=== PATIENT | female | born 1995 | race Caucasian/White ===

== ENCOUNTER 2022-04-11 06:06 | Emergency (ER) | payer SELFPAY ==
[2022-04-11 06:28] VITALS: BP 122/72; PULSE 63; RESP 18; TEMP 36.8; O2SAT 99; BMI 29.2
--- NOTE | 2022-04-11 06:36 | HMH.EDGENADL ---
Discharge Plan Disposition Patient Disposition: Home, Self-Care Condition: Good Chief Complaint: Abdominal Pain Prescriptions Prescriptions: No Action No Known Home Medications Activity Restrictions/Add. Instructions Additional Instructions/Restrictions: Follow-up PCP for further work-up. Return to ER for fever, worsening pain. Clinical Impressions Clinical Impression: Abdominal pain Instructions Patient Instructions: DI for Acute Abdominal Pain Discharge ED Provider: Sudheer Gilbert Adult HPI General Chief complaint: Abdominal Pain Stated complaint: Pain in upper stomach Time Seen by Provider: 04/11/22 06:23 Mode of Arrival: Ambulatory Source of Information: Patient Limitations: No Limitations Description of Symptoms (Recalled from ER Triage Doc. by RN): pt c/o central abdominal pain for the prior 3 days that is constant, but more severe when she stands up completely straight. Patient states that she has been having intermittent abdominal pain for the prior 3 years but they have not been able to determine the cause, but does state that she was dx with gallstones. History of Present Illness HPI narrative: 27yo F presents to the emergency department secondary to epigastric and right upper quadrant abdominal pain. Reports the symptoms have been intermittent for 3 years but have been worse for the past 3 days and she can no longer take the pain. States she was evaluated at [facility] and told there were spots on her gallbladder. She is uncertain exactly what this means. This evaluation took place over a year ago. She complains of nausea with vomiting currently. No fever. No sick contact. Related Data Home Medications Medication Instructions Recorded Confirmed No Known Home Medications 04/11/22 04/11/22 Allergies Allergy/AdvReac Type Severity Reaction Status Date / Time latex AdvReac Mild Rash Verified 04/11/22 06:[address] [facility] Social History Smoking Status: Current every day smoker alcohol intake: never current occupational status: unemployed Travel in the last 8 weeks: None ROS Obtained: Yes Systems reviewed as appropriate & no additional complaints except as documented 10 point ROS negative except as above Physical Exam General General appearance: alert and in no apparent distress Head Head exam: atraumatic and normocephalic Neck Neck exam: Present normal inspection and trachea midline; Absent tenderness Chest Chest inspection: Present normal inspection and symmetric chest wall rise Respiratory Respiratory exam: Present normal lung sounds bilaterally Cardiovascular Cardiovascular exam: Present regular rate and normal rhythm Abdominal Exam Abdominal exam: Present soft and normal bowel sounds; Absent distention, tenderness, guarding, rebound, rigidity or mass Comment: No palpable defect to abdominal wall Extremities Exam Extremities exam: Present normal inspection and normal capillary refill; Absent edema Neurological Exam Neurological exam: Present alert, oriented X3 and CN II-XII intact Psychiatric Psychiatric exam: Present normal affect and normal mood Skin Skin exam: Present warm and dry Medical Decision Making Yaniv Inquiry Pt receiving controlled substance: No Vital Signs: 04/11/22 06:28 Temperature 98.3 F Temperature Source Oral Pulse Rate [Apical] 63 Respiratory Rate 18 Blood Pressure [Right Arm] 122/72 Blood Pressure Mean [Right Arm] 88 Blood Pressure Source [Right Arm] Automatic Cuff Blood Pressure Position [Right Arm] Sitting 02 Sat by Pulse Oximetry 99 Oxygen Delivery Method Room Air Lab Data Lab Results 04/11/22 06:25: WBC 9.1, RBC 4.70, Hgb 13.9, Hct 44.6, MCV 95.0, MCH 29.6, MCHC 31.2 L, RDW 13.3, Plt Count 324, MPV 8.0, Neut % (Auto) 68.5, Lymph % (Auto) 21.9, [place] % (Auto) 6.1, Eos % (Auto) 2.6, Baso % (Auto) 1.0, Neut # (Auto) 6.2, Lymph # (Auto) 2.0, [place] # (Auto) 0.6,
[2022-04-11 06:43] LABS: Basophils # 0.1 K/mm3 (0-0.2); Eosinophils # 0.2 K/mm3 (0.0-0.4); Eosinophils % 2.6 % (0.1-12.0); Hematocrit 44.6 % (37.0-47.0); Hemoglobin 13.9 g/dL (12.2-16.2); Lymphocytes % 21.9 % (10-50); Mean Corpuscular HGB Conc 31.2 g/dL (31.8-35.4); Mean Corpuscular Hemoglobin 29.6 pg (27.0-31.2); Monocytes # 0.6 K/mm3 (0.1-1.0); Monocytes % 6.1 % (1.7-9.3); Neutrophils # 6.2 K/mm3 (1.8-7.8); Neutrophils % 68.5 % (37.0-80.0); Platelet Count 324 K/mm3 (142-424); Red Cell Distribution Width 13.3 % (11.5-17.5); White Blood Count 9.1 K/mm3 (4.8-10.8)
[2022-04-11 06:47] LABS: Alanine Aminotransferase 12 U/L (12-78); Albumin Level 4.4 g/dl (3.5-5.0); Albumin/Globulin Ratio 1.6 (1.1-1.8); Alkaline Phosphatase 110 U/L (38-126); Anion Gap 14.7 mEq/L (5-15); Aspartate Amino Transferase 23 U/L (14-36); Bilirubin,Total 0.3 mg/dl (0.2-1.3); Blood Urea Nitrogen 7 mg/dl (7-17); Calcium 8.9 mg/dl (8.4-10.2); Carbon Dioxide 26 mmol/L (22.0-30.0); Chloride 103 mmol/L (98-107); Creatinine Clearance Estimated 194 mL/min (50-200); Estimated Glomerular Filt Rate 148 ml/min (>60); GFR (African American) 179 ML/MIN (>60); Globulin 2.8 g/dL (1.3-3.2); Glucose 99 mg/dl (74-100); Lipase 20 U/L (23-300); Potassium 3.7 mmoL/L (3.5-5.1); Sodium 140 mmol/L (136-145); Total Protein,Serum 7.2 g/dl (6.3-8.2)
[2022-04-11 07:02] VITALS: BP 120/68; PULSE 65; RESP 18; TEMP 36.6; O2SAT 99
== END 2022-04-11 07:11 | disposition home or self-care (01) ==
PROVIDERS: Emergency Provider Family Medicine
DX: R10.9 Unspecified abdominal pain (principal); Z87.19 Personal history of other diseases of the digestive system; Z91.040 Latex allergy status
CPT/HCPCS: 80053; 83690; 85025; 96374; 96375; 99284; J2405

== ENCOUNTER 2023-02-19 23:37 | Emergency (ER) | payer SELFPAY ==
[2023-02-19 23:38] VITALS: BP 121/75; PULSE 74; RESP 16; TEMP 36.6; O2SAT 100; BMI 27.4
--- NOTE | 2023-02-19 23:46 | ECG_ITS ---
APPROVED REPORT Exam: Resting ECG HR:68 bpm ECG Measurements Heart Rate 68 AXES MI 147 P 71 QRSd 88 QRS 70 QT 365 T 57 QTc 383 Conclusion SINUS RHYTHM NORMAL ECG UNCONFIRMED REPORT Electronically signed by : John Costa MD 02/21/2023 15:07:40
[2023-02-20] VITALS: BP 114/71; PULSE 68; RESP 20; O2SAT 100
--- NOTE | 2023-02-20 00:03 | CT_ITS ---
PROCEDURE INFORMATION: Exam: CT Head Without Contrast Exam date and time: 02/20/2023 12:19 AM Age: 28 years old Clinical indication: Syncope and collapse; Additional info: Recurrent syncope TECHNIQUE: Imaging protocol: Computed tomography of the head without contrast. Radiation optimization: All CT scans at this facility use at least one of these dose optimization techniques: automated exposure control; mA and/or kV adjustment per patient size (includes targeted exams where dose is matched to clinical indication); or iterative reconstruction. REPORTING DATA: Count of CT and Cardiac NM exams in prior 12 months: This patient has received 0 known CTs and 0 known cardiac nuclear medicine studies in the 12 months prior to the current study. COMPARISON: No relevant prior studies available. FINDINGS: Brain: Normal. No hemorrhage. Unremarkable white matter. No mass effect. Cerebral ventricles: No ventriculomegaly. Cavum septum pellucidum et vergae. Paranasal sinuses: Visualized sinuses are unremarkable. No fluid levels. Mastoid air cells: Visualized mastoid air cells are well aerated. Bones/joints: Unremarkable. No acute fracture. Soft tissues: Unremarkable. IMPRESSION: No acute intracranial abnormality.
--- NOTE | 2023-02-20 00:04 | HMH.EDGENADL ---
Discharge Plan Disposition Patient Disposition: Home, Self-Care Condition: Good Prescriptions Prescriptions: No Action No Known Home Medications Activity Restrictions/Add. Instructions Additional Instructions/Restrictions: Please follow-up with cardiology regarding your Holter monitor results. Please record the time and date of any episodes or symptoms that you have. Please follow-up with your primary care provider. Please return to the emergency department if you develop any new or worsening symptoms or become concerned for your health. Clinical Impressions Clinical Impression: Syncope and collapse Instructions Patient Instructions: DI for Syncope in Adults (Fainting), DI for Syncope in Children (Fainting) Discharge ED Provider: Leonel Gallardo Adult HPI General Chief complaint: Syncope Stated complaint: Passed out tonight Time Seen by Provider: 02/19/23 23:41 Mode of Arrival: Ambulatory Source of Information: Patient Limitations: No Limitations Description of Symptoms (Recalled from ER Triage Doc. by RN): pt states she was washing dishes and started feeling weird and they next thing she knew was sitting at kitchen table. pt said she starting having these episodes 5 years ago and recently starting having increase in episodes. pt reports smoking marijuana four hours ago. History of Present Illness HPI narrative: 28-year-old female, no reported past medical history presents with complaints of syncope. She reports this most recent episode happened while she was sitting at the kitchen table. She reports that she had bilateral facial numbness and then became unresponsive. No reported seizure-like activity per bystanders. She is unsure of the exact length but thinks it may have been a minute or so. she denies any chest pain before or after the event. She reports that she felt somewhat drowsy afterwards but then returned to normal within a couple minutes. She reports that these episodes have been happening with increasing frequency for the last 5 years. He was initially told it was related to her high caffeine intake. She reduced her caffeine intake and it improved. Never had a youth nutritional monitor, CT scan or EEG. She was once told that she had an abnormality behind my right eye 3 years ago but never followed up. She reports no current symptoms. She reports that she feels these episodes are sometimes related to stress. She thinks about half the episodes happen during acutely stressful incidents. She came in tonight because the episode lasted longer than normal. Related Data Home Medications Medication Instructions Recorded Confirmed No Known Home Medications 04/11/22 04/11/22 Allergies Allergy/AdvReac Type Severity Reaction Status Date / Time latex AdvReac Mild Rash Verified 04/11/22 06:32 [facility] Disclaimer: The information contained in this section may have been updated after the patient was seen, as this information can be updated by other users. Social History (Updated 04/11/22 @ 06:54 by Sudheer Gilbert DO) Smoking Status: Current every day smoker alcohol intake: never current occupational status: unemployed Travel in the last 8 weeks: None ROS Obtained: Yes All systems reviewed & no additional complaints except as documented Physical Exam General General appearance: alert and in no apparent distress Head Head exam: atraumatic and normocephalic Eye Eye exam: Present normal appearance, PERRL and EOMI ENT ENT exam: Present normal oropharynx and normal external ear exam Neck Neck exam: Present normal inspection and full ROM Chest Chest inspection: Present normal inspection and symmetric chest wall rise; Absent tenderness Respiratory Respiratory exam: Present normal lung sounds bilaterally; Absent respiratory distress Cardiovascular Cardiovascular exam: Present regular rate and normal rhythm Abdominal Exam Abdominal exam: Present soft; Absent distention, tendern
[2023-02-20 00:30] VITALS: BP 129/73; PULSE 72; RESP 18; O2SAT 99
[2023-02-20 01:00] VITALS: BP 132/69; PULSE 62; RESP 20; O2SAT 100
[2023-02-20 01:14] VITALS: BP 132/69; PULSE 62; RESP 20; TEMP 36.6; O2SAT 100
== END 2023-02-20 01:15 | disposition home or self-care (01) ==
PROVIDERS: Emergency Provider Emergency Medicine
DX: R55 Syncope and collapse (principal); R22.0 Localized swelling, mass and lump, head; F17.200 Nicotine dependence, unspecified, uncomplicated
CPT/HCPCS: 70450; 93005; 93225; 99284